=== PATIENT | female | born 1950 | race Two or more races ===

== ENCOUNTER 2017-07-05 10:37 | Emergency (ER) | payer BC, OTHER ==
[~2017-07-05] VITALS: Ht 157.5 cm; Wt 74.8 kg
[~2017-07-05 10:37] MED LIST: ASCO500T9 PO; CARV12.52 PO; CHOL100040 PO; FENO145T PO; FERR325T24 PO; INSU100V28 SQ; LISI-603 PO
[2017-07-05] MEDS ORDERED: FLUORESCEIN SODIUM OPHTH 1 EA STRIP ONE (11:28)
[2017-07-05] MEDS ORDERED: TETRACAINE HCL/PF 0.5% UD 2 ML BOTTLE ONE (11:29)
[2017-07-05] MEDS ORDERED: FLUORESCEIN SODIUM OPHTH 1 EA STRIP OP ONE (11:30)
[2017-07-05] MEDS ORDERED: TETRACAINE HCL/PF 0.5% UD 2 ML BOTTLE OP ONE (11:30)
--- NOTE | 2017-07-05 12:34 | NUR ---
CALLED THE OPTHAMOLOGIST MEDICAL DEVICE ENGINEER FROM THIS PT'S CLINIC AND THE MD IS NOW ON THE PHONE WITH HIM.
[2017-07-05] MEDS ORDERED: TIMOLOL 0.5% SOLN OPHTH 5 ML BOTTLE OP ONE (13:00)
[2017-07-05] MEDS ORDERED: HYDROCODONE/APAP 5/325MG 1 EACH TABLET PO ONE (13:00)
[2017-07-05] MEDS ORDERED: LATANOPROST EYE DROP 0.005% 2.5 ML BOTTLE LEFTEYE SCH (13:00)
[2017-07-05] MEDS ORDERED: BRIMONIDINE TARTRATE OPHT SOLN 5 ML BOTTLE OP ONE (13:00)
[2017-07-05] MEDS ORDERED: acetaZOLAMIDE 250 MG TABLET PO ONE (13:00)
[2017-07-05] MEDS ORDERED: BRIMONIDINE TARTRATE OPHT SOLN 5 ML BOTTLE ONE (13:14)
[2017-07-05] MEDS ORDERED: HYDROCODONE/APAP 5/325MG 1 EACH TABLET ONE (13:14)
[2017-07-05] MEDS ORDERED: TIMOLOL 0.5% SOLN OPHTH 5 ML BOTTLE ONE (13:14)
[2017-07-05 14:39] VITALS: BP 125/74
== END 2017-07-05 14:46 | disposition home or self-care (01) ==
LOC: ER 10:38
DX: H40.212 Acute angle-closure glaucoma, left eye (principal); R51 Headache; E11.9 Type 2 diabetes mellitus without complications; E78.5 Hyperlipidemia, unspecified; I10 Essential (primary) hypertension; H54.62 Unqualified visual loss, left eye, normal vision right eye; Z60.2 Problems related to living alone
CPT/HCPCS: 82962-TC; A4606; Z7610

== ENCOUNTER 2019-05-18 15:42 | Emergency (ER) | payer BC, OTHER ==
[~2019-05-18] VITALS: Ht 157.5 cm; Wt 77.1 kg
[2019-05-18 15:49] VITALS: BP 194/78
--- NOTE | 2019-05-18 16:58 | NUR ---
CALLED PRIVATE TAXI
== END 2019-05-18 17:14 | disposition home or self-care (01) ==
LOC: ER 15:42
DX: R05 Cough (principal); E11.22 Type 2 diabetes mellitus with diabetic chronic kidney disease; I13.11 Hypertensive heart and chronic kidney disease without heart failure, with stage 5 chronic kidney disease, or end stage renal disease; N18.6 End stage renal disease; E78.5 Hyperlipidemia, unspecified; Z99.2 Dependence on renal dialysis; Z60.2 Problems related to living alone; Z79.899 Other long term (current) drug therapy; Z79.4 Long term (current) use of insulin
CPT/HCPCS: 71045-TC

== ENCOUNTER 2019-11-18 16:11 | Emergency (ER) | payer OTHER ==
[~2019-11-18] VITALS: Ht 160 cm; Wt 77.1 kg
[~2019-11-18 16:11] MED LIST changes: +ASCO-352 PO; -ASCO500T9 PO
[2019-11-18 16:41] LABS: BASOPHILS % (AUTO) 0.3 % (0.0-2.0); EOSINOPHILS % (AUTO) 0.1 % (0.0-6.0); HEMATOCRIT 39 % (33-45); HEMOGLOBIN 12.7 g/dL (11.5-14.8); LYMPHOCYTES # (AUTO) 0.5 /CMM (0.8-4.8); LYMPHOCYTES % (AUTO) 4.3 % (20.0-44.0); MEAN CORPUSCULAR HGB CONC 32 g/dl (31.0-36.0); MEAN CORPUSCULAR VOLUME 93 fL (82-100); MONOCYTES # (AUTO) 0.7 /CMM (0.1-1.30); MONOCYTES % (AUTO) 6.6 % (2.0-12.0); NEUTROPHILS # (AUTO) 9.3 /CMM (1.8-8.9); NEUTROPHILS % (AUTO) 88.7 % (43.0-81.0); PLATELET COUNT (AUTO) 170 /CMM (150-450); RED BLOOD CELL COUNT(AUTO) 4.21 MIL/uL (4.0-5.2); WHITE BLOOD COUNT (AUTO) 10.5 K/uL (4.3-11.0)
--- NOTE | 2019-11-18 16:41 | NUR ---
KATE FROM HOME TO ER BED 6. AAXO4. NOT IN RESP DISTRESS. BROUGHT IN FOR GLF. PT IS COMPLAINING OF L KNEE PAIN S/P FALL. PT IS POSITIVE L LOWER EXT SHORTENING AND EXTERNAL ROTATION. PT RECEIVED FENTANYL 100MCG CHAIRMAN & CEO BY THE EMS. PT IS NOT COMPLANING OF ANY PAIN UNLES SHE IS MOVED OR TRIES TO MOVE ER L LEG. PT DENIES LOC AND REMEMBER FALLING. SHE REPORTS THAT SHE WAS ON THE FLOOR FOR 3 HOURS UNTIL SHE CRAWL TO HER WALKER. PT REPORTS BEING ON DIALYSIS AND MISSED HER SESSION TODAY. WAS AT THE BEDSIDE FOR EVAL. ORDERS RECEIVED NOTED AND CARRIED OUT. IV LINE ESTABLISHED ON RFA 20G. BLOOD DRAWN AND GIVEN TO FRANCHISE BROKER AT BEDSIDE.
[2019-11-18 16:54] LABS: ALANINE AMINOTRANSFERASE 18 U/L (12-78); ALBUMIN 3.4 g/dL (3.4-5.0); ALKALINE PHOSPHATASE 113 U/L (46-116); ASPARTATE AMINOTRANSFERASE 20 U/L (15-37); BILIRUBIN,DIRECT 0.1 mg/dL (0.0-0.2); BILIRUBIN,TOTAL 0.7 mg/dL (0.2-1.0); CALCIUM, SERUM 8.8 mg/dL (8.5-10.1); CARBON DIOXIDE 24 mmol/L (21-32); CHLORIDE 101 mmol/L (98-107); GLUCOSE 162 mg/dL (74-106); POTASSIUM 3.8 mmol/L (3.5-5.1); SODIUM SERUM 138 mmol/L (136-145); TOTAL PROTEIN, SERUM 7.5 g/dL (6.4-8.2)
[2019-11-18 17:10] LABS: UREA NITROGEN, BLOOD 51 mg/dL (7-18)
[2019-11-18 17:12] LABS: CREATININE 7.6 mg/dL (0.6-1.3)
[2019-11-18] MEDS ORDERED: INSU100I14 SQ (17:19)
[2019-11-18] MEDS ORDERED: NPH,100I SQ (17:19)
[2019-11-18] MEDS ORDERED: OMEP40CA13 PO (17:19)
[2019-11-18] MEDS ORDERED: ATOR40TA PO (17:19)
--- NOTE | 2019-11-18 17:21 | NUR ---
GAVE MOVESHEET TO ADMITTING FOR INSURANCE AUTH
[2019-11-18] MEDS ORDERED: ONDANSETRON HCL/PF 4 MG/2 ML VIAL ONE (17:22)
[2019-11-18] MEDS ORDERED: MORPHINE SULFATE INJ 4 MG/ML DISP.SYRIN ONE ×3 (17:22→23:39)
[2019-11-18] MEDS ORDERED: MORPHINE SULFATE INJ 4 MG/ML DISP.SYRIN IV ONE ×2 (17:30→22:00)
[2019-11-18] MEDS ORDERED: ONDANSETRON HCL/PF 4 MG/2 ML VIAL IV ONE (17:30)
--- NOTE | 2019-11-18 17:41 | NUR ---
COVID SWAB DONE AND SENT TO LAB
--- NOTE | 2019-11-18 19:20 | NUR ---
CLINICALS AND MOVE PACKET TURNED IN.
--- NOTE | 2019-11-18 21:14 | NUR ---
PT COMPLAINED OF PAIN STARTING TO COME BACK. MADE AWARE. VERBAL ORDER REICEVED TO GIVE MORPHINE 4MG IV X 1 DOSE. PT ALSO REQUESTED TO EAT, MD OK TO HAVE FOOD FOR PT BEFORE MIDNIGHT.
--- NOTE | 2019-11-18 22:53 | NUR ---
TRANSFER INFO: RECEIVED CALL FROM [facility] LEBLANC PT ACCEPTED BY DR ALVAREZ, RN FOR REPORT [phone], AWAITING CALL BACK WITH ETA
--- NOTE | 2019-11-18 23:10 | NUR ---
PT ACCEPTED TO [facility]
[2019-11-18] MEDS ORDERED: MORPHINE SULFATE INJ 2 MG/ML DISP.SYRIN IV ONE (23:30)
--- NOTE | 2019-11-18 23:59 | NUR ---
REPORT GIVEN TO CORINNE TELLEZ OF [facility] ER FOR MORRIS. AWAITING FOR TRANSPORT ETA.
--- NOTE | 2019-11-18 23:59 | NUR ---
Boby lynch in EDM - 11/19/19 at 0000 by JSARMIENTO REPORT GIVEN TO CORINNE CACERES OF [facility] FOR MORRIS. AWAITING FOR TRANSPORT ETA.
--- NOTE | 2019-11-19 00:04 | NUR ---
[facility] ETA 0300 HOURS
[2019-11-19 01:01] VITALS: BP 98/44
--- NOTE | 2019-11-19 01:01 | NUR ---
PT IN BED SLEEPING COMFORTABLY. NAD NOTED
--- NOTE | 2019-11-19 03:22 | NUR ---
[facility] AT BEDSIDE FOR TRANSPORT TO [facility].
== END 2019-11-19 03:32 | disposition short-term general hospital (02) ==
LOC: ER 16:12
DX: S72.142A Displaced intertrochanteric fracture of left femur, initial encounter for closed fracture (principal); S72.8X2A Other fracture of left femur, initial encounter for closed fracture; W18.30XA Fall on same level, unspecified, initial encounter; Y92.019 Unspecified place in single-family (private) house as the place of occurrence of the external cause; E11.22 Type 2 diabetes mellitus with diabetic chronic kidney disease; I12.0 Hypertensive chronic kidney disease with stage 5 chronic kidney disease or end stage renal disease; N18.6 End stage renal disease; N17.9 Acute kidney failure, unspecified; Z99.2 Dependence on renal dialysis; Z79.4 Long term (current) use of insulin; Z79.899 Other long term (current) drug therapy; E78.5 Hyperlipidemia, unspecified; E11.51 Type 2 diabetes mellitus with diabetic peripheral angiopathy without gangrene; Z20.828 Contact with and (suspected) exposure to other viral communicable diseases
CPT/HCPCS: 36415; 51702; 73503; 73564; 73610; 80048; 80076; 82962; 84484; 85025; 87426; 93005; 96374; 96375; 96376; 99285; C9803; J2270 ×3; J2405; 73502

== ENCOUNTER 2020-01-02 17:04 | Inpatient (IN) | payer OTHER ==
[~2020-01-02] VITALS: Ht 162.6 cm; Wt 79.8 kg
[~2020-01-02 17:04] MED LIST changes: +ATOR40TA PO; -FENO145T PO; -FERR325T24 PO; +INSU100I14 SQ; -INSU100V28 SQ; +NPH,100I SQ; +OMEP40CA13 PO
--- NOTE | 2020-01-02 17:08 | NUR ---
[id number] frm LONG-TERM for "vaginal bleeding" noted at dialysis center. skin and body assessment and pericare provided. no vaginal bleeding noted. no SOB. no tachycardia. awaiting for MD sanders
--- NOTE | 2020-01-02 17:15 | NUR ---
at bedside for eval.
--- NOTE | 2020-01-02 17:28 | NUR ---
foundry hand at pt bedside for blood draw
[2020-01-02 17:35] LABS: BASOPHILS # (AUTO) 0.1 /CMM (0.0-0.2); BASOPHILS % (AUTO) 0.5 % (0.0-2.0); EOSINOPHILS % (AUTO) 0.1 % (0.0-6.0); HEMATOCRIT 30 % (33-45); HEMOGLOBIN 9.3 g/dL (11.5-14.8); LYMPHOCYTES # (AUTO) 0.4 /CMM (0.8-4.8); LYMPHOCYTES % (AUTO) 1.9 % (20.0-44.0); MEAN CORPUSCULAR HGB CONC 31 g/dl (31.0-36.0); MEAN CORPUSCULAR VOLUME 92 fL (82-100); MONOCYTES # (AUTO) 0.7 /CMM (0.1-1.30); MONOCYTES % (AUTO) 3.3 % (2.0-12.0); NEUTROPHILS # (AUTO) 20.7 /CMM (1.8-8.9); NEUTROPHILS % (AUTO) 94.2 % (43.0-81.0); PLATELET COUNT (AUTO) 240 /CMM (150-450); RED BLOOD CELL COUNT(AUTO) 3.22 MIL/uL (4.0-5.2)
[2020-01-02 17:39] LABS: CALCIUM, SERUM 8.4 mg/dL (8.5-10.1); CARBON DIOXIDE 29 mmol/L (21-32); CHLORIDE 100 mmol/L (98-107); CREATININE 2.4 mg/dL (0.6-1.3); GLUCOSE 84 mg/dL (74-106); POTASSIUM 3.3 mmol/L (3.5-5.1); SODIUM SERUM 138 mmol/L (136-145); UREA NITROGEN, BLOOD 17 mg/dL (7-18)
[2020-01-02 18:10] LABS: BILIRUBIN,DIRECT 0.4 mg/dL (0.0-0.2); BILIRUBIN,TOTAL 0.7 mg/dL (0.2-1.0); TOTAL PROTEIN, SERUM 6.2 g/dL (6.4-8.2)
[2020-01-02 18:20] LABS: ALBUMIN 1.4 g/dL (3.4-5.0)
[2020-01-02] MEDS ORDERED: CALC668T PO (18:21)
[2020-01-02] MEDS ORDERED: DICY20TA11 PO (18:21)
[2020-01-02] MEDS ORDERED: PREG25CA19 PO (18:21)
[2020-01-02] MEDS ORDERED: VITA1TAB56 PO (18:21)
[2020-01-02] MEDS ORDERED: ALEN70TA69 PO (18:22)
--- NOTE | 2020-01-02 18:40 | NUR ---
URINE COLLECTED AND SETN TO LAB
--- NOTE | 2020-01-02 18:53 | NUR ---
KEPT PT CLEAN AND COMFORTABLE. BEDSIDE CARE PROVIDED
[2020-01-02 19:08] LABS: BILIRUBIN,URINE SMALL (NEGATIVE); BLOOD, URINE Moderate Ery/uL (NEGATIVE); COLOR,URINE Brown (YELLOW); LEUKOCYTE ESTERASE ,URINE Large (NEGATIVE); NITRITE, URINE Negative (NEGATIVE); PH,URINE 7.5 (5.0-8.0); PROTEIN,URINE >=300 mg/dl (NEGATIVE); UGLUCOSE Negative (NEGATIVE); UROBILINOGEN,URINE 0.2 EU/dL (0.2)
--- NOTE | 2020-01-02 19:14 | NUR ---
SPOKE TO CHALO REGAL PRODUCTION DIRECTOR GAVE PT MORRIS
[2020-01-02 19:24] LABS: BACTERIA,URINE 3+ /HPF (None Seen); RBC,URINE TOO NUMEROUS TO COUN /HPF (0-2); SQUAMOUS EPITHELIAL CELL,UR Few /HPF (None Seen); WBC,URINE TOO NUMEROUS TO COUN /HPF (0-3)
[2020-01-02] MEDS ORDERED: IV NS 0.9% 1,000 ML BAG IV ONE (19:30)
[2020-01-02] MEDS ORDERED: PIPERACILLIN /TAZOBACTAM 3.375 G in IV D5W 50 ML IV ONE (20:00)
[2020-01-02] MEDS ORDERED: VANCOMYCIN 1 GM in IV D5W 250 ML IV ONE (20:00)
[2020-01-02] MEDS ORDERED: LORAZEPAM INJ 2 MG/ML VIAL ONE (20:15)
--- NOTE | 2020-01-02 20:40 | NUR ---
DR. PINEDA SPEAKING WITH DR. BLACK
[2020-01-02] MEDS ORDERED: VANCOMYCIN 1 GM VIAL ONE (20:41)
[2020-01-02] MEDS ORDERED: PIPERACILLIN /TAZOBACTAM 3.375 G VIAL IV ONE (20:41)
[2020-01-02] MEDS ORDERED: POTASSIUM CHLORIDE 20 MEQ TAB.PRT.SR PO ONE ×2 (21:00→23:57)
[2020-01-02] MEDS ORDERED: ZOLPIDEM TARTRATE 5 MG TABLET PO PRN (21:00)
[2020-01-02] MEDS ORDERED: HYDROCODONE/APAP 5/325MG TABLET PO PRN (21:00)
[2020-01-02] MEDS ORDERED: LORAZEPAM INJ 2 MG/ML VIAL IV PRN (21:00)
[2020-01-02] MEDS ORDERED: DEXTROSE 50%-WATER 50 ML DISP.SYRIN IV PRN (21:00)
--- NOTE | 2020-01-02 21:28 | NUR ---
REPORT GIVEN TO CHALINO SUN FOR MORRIS.
[2020-01-02] MEDS ORDERED: IV NS 0.9% 250 ML IV PRN (21:30)
[2020-01-02 22:00] VITALS: BP 77/42
[2020-01-02 22:57] VITALS: BP 125/62
[2020-01-02] MEDS: BLOOD SUGAR DIAGNOSTIC 1 EACH STRIP VI SCH (23:41)
[2020-01-02] MEDS ORDERED: PIPERACILLIN /TAZOBACTAM 2.25 G VIAL IV ONE (23:57)
[2020-01-03] VITALS (77 sets, daily range): BP systolic 68–128; BP diastolic 20–104
--- NOTE | 2020-01-03 | NUR ---
agricultural sciences professor. pt being admitted in the icu for uti,hematuria, pt awake, confused. oxygen 3l via nasal cannula. sat 98%, no acute distress noted. lunchroom monitor showing nsr, iv rt hand lt hand av fistula, afebrile. hob elevated. multiple wound noted. picture taken and placed in the chart.will continue to monitor vitals
[2020-01-03] MEDS ORDERED: NOREPINEPHRINE 4 MG/4 ML AMPUL IV ONE (00:10)
[2020-01-03] MEDS: PREGABALIN 25 MG CAPSULE PO SCH ×2 (00:19→21:32)
[2020-01-03] MEDS: NOREPINEPHRINE 32 MG in IV NS 0.9% 218 ML IV PRN ×2 (00:29→21:06)
[2020-01-03] MEDS: ZOSYN IVPB 2.25 G in IV D5W 50ml IV SCH ×2 (01:12→06:11)
--- NOTE | 2020-01-03 02:10 | NUR ---
HEALTH INSURANCE ADJUSTER. PT SLEPT WELL. NO CHANGES. WILL CONTINUE TO MONITOR.
--- NOTE | 2020-01-03 03:14 | NUR ---
agriculture extension specialist. bp 66.45. levophed started per protocol.
[2020-01-03 04:43] LABS: BASOPHILS # (AUTO) 0.1 /CMM (0.0-0.2); BASOPHILS % (AUTO) 0.2 % (0.0-2.0); HEMATOCRIT 35 % (33-45); HEMOGLOBIN 10.5 g/dL (11.5-14.8); LYMPHOCYTES % (AUTO) 2.9 % (20.0-44.0); MEAN CORPUSCULAR HGB CONC 30 g/dl (31.0-36.0); MEAN CORPUSCULAR VOLUME 97 fL (82-100); MONOCYTES # (AUTO) 1.6 /CMM (0.1-1.30); MONOCYTES % (AUTO) 4.9 % (2.0-12.0); NEUTROPHILS # (AUTO) 30.9 /CMM (1.8-8.9); PLATELET COUNT (AUTO) 266 /CMM (150-450); RED BLOOD CELL COUNT(AUTO) 3.61 MIL/uL (4.0-5.2)
[2020-01-03 04:50] LABS: WHITE BLOOD COUNT (AUTO) 33.6 K/uL (4.3-11.0)
[2020-01-03 04:55] LABS: CALCIUM, SERUM 8.2 mg/dL (8.5-10.1); CARBON DIOXIDE 22 mmol/L (21-32); CHLORIDE 100 mmol/L (98-107); CREATININE 2.8 mg/dL (0.6-1.3); GLUCOSE 112 mg/dL (74-106); POTASSIUM 3.4 mmol/L (3.5-5.1); SODIUM SERUM 138 mmol/L (136-145); UREA NITROGEN, BLOOD 22 mg/dL (7-18)
--- NOTE | 2020-01-03 05:00 | NUR ---
agricultural sales representative. pt has fever 100.5, tylenol pulled out from [facility]. pt refused. notified md rocha. new order received tylenol suppository.
[2020-01-03 05:01] LABS: ALANINE AMINOTRANSFERASE 30 U/L (12-78); ALBUMIN 1.5 g/dL (3.4-5.0); ALKALINE PHOSPHATASE 107 U/L (46-116); ASPARTATE AMINOTRANSFERASE 94 U/L (15-37); BILIRUBIN,TOTAL 0.9 mg/dL (0.2-1.0); MAGNESIUM 2.1 mg/dL (1.8-2.4); TOTAL PROTEIN, SERUM 6.6 g/dL (6.4-8.2)
[2020-01-03 05:15] LABS: LYMPHOCYTES % (MANUAL) 4 % (16-48); MONOCYTES % (MANUAL) 5 % (0-11.0); NEUTROPHILS % (MANUAL) 91 (42-76)
[2020-01-03] MEDS: ACETAMINOPHEN 325 MG TABLET PO PRN (05:24)
[2020-01-03] MEDS ORDERED: PIPERACILLIN /TAZOBACTAM 2.25 G VIAL IV ONE (05:50)
[2020-01-03] MEDS ORDERED: ACETAMINOPHEN 650 MG/SUPP.RECT RC PRN (06:30)
--- NOTE | 2020-01-03 06:56 | NUR ---
agriculture instructor. wbc 33.6. notified md rocha. and short run v tach, .pt waiting for picc line. .will continue to monitor.
[2020-01-03] MEDS: PANTOPRAZOLE 40 MG TABLET.DR PO SCH (07:30)
--- NOTE | 2020-01-03 07:30 | NUR ---
RECEIVED PATIENT IN BED. NO ACUTE DISTRESS NOTED. PATIENT ALERT & ORIENTED X2, WITH CONFUSION. PATIENT RECEIVING OXYGEN VIA NASAL CANULA, SATURATING WELL AT 94%. PATIENT ON BIOLOGY SPECIMEN TECHNICIAN, SINUS TACHYCARDIA NOTED. PATIENT SWALLOW EVAL ORDERED DUE TO POSSIBLE ASPIRATION RISK, SO NON-ADMINISTERING PO MEDS FOR THE TIME BEING. PATIENT RIGHT ARM IV ACCESS INTACT, PATENT FLUSHED WELL, RIGHT WRIST IV ACCESS INTACT, PATENT, FLUSHED WELL. PATIENT ON VASOPRESSORS, SO PICC LINE ORDERED AND CONSENT SIGNED BY TIME BROKER NURSE, AWAITING PICC LINE PLACEMENT. PATIENT WBC AT CRITICAL VALUE, PER TIME BROKER NURSE MD BLACK NOTIFIED. BILATERAL SOFT WRIST RESTRAINTS IN PLACE, SAFETY MEASURES MAINTAINED. PATIENT SAFETY MEASURES MAINTAINED. WILL CONTINUE TO MONITOR.
[2020-01-03] MEDS: CALCIUM ACETATE 667 MG TABLET PO SCH ×2 (08:00→17:50)
[2020-01-03] MEDS ORDERED: POTASSIUM CHLORIDE 10 MEQ/50 ML PREMIXED IVPB FOR PERIPHERAL LINE IV ONE (08:00)
[2020-01-03] MEDS: BLOOD SUGAR DIAGNOSTIC 1 EACH STRIP VI SCH ×4 (08:15→21:36)
[2020-01-03] MEDS: DICYCLOMINE HCL 10 MG CAPSULE PO SCH ×2 (08:16→17:50)
[2020-01-03] MEDS: ATORVASTATIN 40 MG TABLET PO SCH (08:18)
[2020-01-03] MEDS: CHOLECALCIFEROL 1,000 UNIT TABLET (VIT D3) PO SCH (08:18)
[2020-01-03] MEDS: VITAMIN B COMP W-C 1 TAB TABLET PO SCH (08:18)
[2020-01-03] MEDS: ASCORBIC ACID 500 MG TABLET PO SCH ×2 (08:18→17:50)
[2020-01-03] MEDS ORDERED: Z GUARD REMEDY 2 OZ OINT TP PRN (08:30)
[2020-01-03] MEDS ORDERED: MEROPENEM 500 MG in IV NS 0.9% 50 ML IV SCH (08:30)
[2020-01-03] MEDS ORDERED: VANCOMYCIN 500 MG in IV D5W 100 ML IV PRN (08:30)
[2020-01-03] MEDS ORDERED: IV NS 0.9% 1,000 ML IV PRN (08:30)
--- NOTE | 2020-01-03 08:30 | NUR ---
WOUND CARE CONSULT: REVIEWED CHART, NURSING DOCUMENTATION AND PHOTOS WHICH INDICATE MULTIPLE DEEP TISSUE INJURIES, PRESENT ON ADMISSION. RECOMMEND SURGICAL AND DPM CONSULTATIONS. DR SIMENTAL AND DR MAYFIELD NOTIFIED OF CONSULT REQUESTS. RECOMMENDATIONS MADE FOR SKIN PROTECTION. DISCUSSED WITH NURSING STAFF. FIRST STEP LOW AIRLOSS MATTRESS IS ON ORDER. MD IN AGREEMENT WITH PLAN OF CARE.
[2020-01-03] MEDS: Z GUARD REMEDY 2 OZ OINT TP SCH (08:45)
[2020-01-03] MEDS: POTASSIUM CL. PREMIX PERIPHER. 50 ML IV SCH ×4 (08:46→11:59)
[2020-01-03] MEDS: MEROPENEM 500 MG in IV NS 0.9% 50 ML IV SCH (08:46)
[2020-01-03] MEDS: INSULIN REGULAR, HUMAN 100 UNIT/ML 3 ML VIAL SQ PRN ×2 (11:57→18:05)
[2020-01-03] MEDS ORDERED: PIPERACILLIN /TAZOBACTAM 2.25 G in IV D5W 50 ML IV SCH ×3 (13:00)
[2020-01-03] MEDS: PHENYLEPHRINE 100 MG in IV NS 0.9% 240 ML IV PRN ×2 (14:17→21:06)
--- NOTE | 2020-01-03 19:32 | NUR ---
LOG YARD MANAGER OPENING NOTES: Rec'd pt in bed, awake A&Ox1-2, confused. On 3LPM NC tolerating well. No SOB or resp distress noted. Breathing even and unlabored. Sinus tachy on tele monitor. Right IJ PICC patent and infusing Eugenio at 3mcg/kg/min. Levo at 0.9mcg/kg/min. Will titrate per protocol. NS at 50ml/hr. Right arm #18 patent and flushed. Left arm AV fistula n oted. Bilateral soft wrist restraints in place. Safety measures in place. Will continue to monitor.
[2020-01-03] MEDS: *INSULIN REGULAR(HUMULIN R)HUM 100 UNIT/ML VIAL SQ PRN (21:38)
[2020-01-04] VITALS (98 sets, daily range): BP systolic 68–159; BP diastolic 28–124
[2020-01-04] MEDS: ACETAMINOPHEN 325 MG TABLET PO PRN (04:23)
--- NOTE | 2020-01-04 04:23 | NUR ---
EMULSION COATER NOTE: Pt noted w/ temp of 100.2. Tylenol 650mg PO PRN given as ordered. Cooling measures in place. Will continue to monitor. Addendum: 01/04/20 at 0558 by MELINDA CONNOR RN Rechecked pt's temp. Currently 98.6. Will continue to monitor.
[2020-01-04 04:35] LABS: BASOPHILS % (AUTO) 0.1 % (0.0-2.0); HEMATOCRIT 31 % (33-45); HEMOGLOBIN 9.1 g/dL (11.5-14.8); LYMPHOCYTES # (AUTO) 0.9 /CMM (0.8-4.8); LYMPHOCYTES % (AUTO) 2.7 % (20.0-44.0); MEAN CORPUSCULAR HGB CONC 30 g/dl (31.0-36.0); MEAN CORPUSCULAR VOLUME 95 fL (82-100); MONOCYTES # (AUTO) 1.6 /CMM (0.1-1.30); MONOCYTES % (AUTO) 4.8 % (2.0-12.0); NEUTROPHILS # (AUTO) 30.7 /CMM (1.8-8.9); NEUTROPHILS % (AUTO) 92.4 % (43.0-81.0); PLATELET COUNT (AUTO) 299 /CMM (150-450); RED BLOOD CELL COUNT(AUTO) 3.19 MIL/uL (4.0-5.2)
[2020-01-04 04:38] LABS: WHITE BLOOD COUNT (AUTO) 33.2 K/uL (4.3-11.0)
[2020-01-04] MEDS: NOREPINEPHRINE 32 MG in IV NS 0.9% 218 ML IV PRN ×3 (04:41→20:48)
[2020-01-04] MEDS ORDERED: PHENYLEPHRINE 10 MG/ML VIAL ONE (04:46)
[2020-01-04 04:47] LABS: ALANINE AMINOTRANSFERASE 32 U/L (12-78); ALKALINE PHOSPHATASE 93 U/L (46-116); ASPARTATE AMINOTRANSFERASE 61 U/L (15-37); BILIRUBIN,TOTAL 0.9 mg/dL (0.2-1.0); CALCIUM, SERUM 8.3 mg/dL (8.5-10.1); CARBON DIOXIDE 15 mmol/L (21-32); CHLORIDE 102 mmol/L (98-107); CREATININE 3.7 mg/dL (0.6-1.3); GLUCOSE 214 mg/dL (74-106); MAGNESIUM 2.1 mg/dL (1.8-2.4); POTASSIUM 4.1 mmol/L (3.5-5.1); SODIUM SERUM 142 mmol/L (136-145); TOTAL PROTEIN, SERUM 6.1 g/dL (6.4-8.2); UREA NITROGEN, BLOOD 32 mg/dL (7-18)
[2020-01-04 04:49] LABS: ALBUMIN 1.3 g/dL (3.4-5.0)
[2020-01-04] MEDS: PHENYLEPHRINE 100 MG in IV NS 0.9% 240 ML IV PRN ×3 (04:54→21:36)
[2020-01-04 05:04] LABS: CREATINE KINASE, TOTAL 167 U/L (26-192)
[2020-01-04 05:07] LABS: LYMPHOCYTES % (MANUAL) 3 % (16-48); MONOCYTES % (MANUAL) 5 % (0-11.0); NEUTROPHILS % (MANUAL) 92 (42-76)
--- NOTE | 2020-01-04 06:15 | NUR ---
PAVER NOTE: Rec'd critical lab values wbc:33.2 and albumin 1.3. Paged Dr. Kay who had NNO at this time.
--- NOTE | 2020-01-04 07:05 | NUR ---
ADMISSION NURSE CLOSING NOTES: No acute changes noted throughout shift. Remains on 3LPM NC tolerating well. No SOB or resp distress noted throughout shift. ST on tele monitor. RIJ PICC line patent and infusing NS at 50ml/hr, Levo at 0.9mcg/kg/min and Eugenio at 3mcg/kg/min. Kept clean/dry. All due meds given as ordered. Safety measures in place. Will endorse to oncoming nurse for MORRIS.
[2020-01-04] MEDS: ATORVASTATIN 40 MG TABLET PO SCH (08:18)
[2020-01-04] MEDS: CALCIUM ACETATE 667 MG TABLET PO SCH ×2 (08:19→17:18)
[2020-01-04] MEDS: MEROPENEM 500 MG in IV NS 0.9% 50 ML IV SCH (08:19)
[2020-01-04] MEDS: PANTOPRAZOLE 40 MG TABLET.DR PO SCH (08:19)
[2020-01-04] MEDS: ASCORBIC ACID 500 MG TABLET PO SCH ×2 (08:19→16:25)
[2020-01-04] MEDS: DICYCLOMINE HCL 10 MG CAPSULE PO SCH ×2 (08:19→16:25)
[2020-01-04] MEDS: CHOLECALCIFEROL 1,000 UNIT TABLET (VIT D3) PO SCH (08:19)
[2020-01-04] MEDS: VITAMIN B COMP W-C 1 TAB TABLET PO SCH (08:19)
[2020-01-04] MEDS: BLOOD SUGAR DIAGNOSTIC 1 EACH STRIP VI SCH ×4 (08:19→21:40)
[2020-01-04] MEDS: Z GUARD REMEDY 2 OZ OINT TP SCH (08:19)
[2020-01-04] MEDS: INSULIN REGULAR, HUMAN 100 UNIT/ML 3 ML VIAL SQ PRN ×2 (08:20→12:38)
[2020-01-04] MEDS: INSULIN GLARGINE, 100 UNIT/ML CARTRIDGE SQ SCH (10:09)
[2020-01-04] MEDS: VASOPRESSIN INJ 40 UNIT in IV NS 0.9% 38 ML IV PRN (11:01)
--- NOTE | 2020-01-04 11:13 | NUR ---
RN NOTE 0715: Received patient awake, alert to name. RIJ TLC intact, on Eugenio max and Levo 0.9. ST 140's on the monitor. IVF infusing as ordered. VICTORINO AV fistula intact, + bruit/thrill. 0800: Patient refused to have breakfast. 0820: DCd IVF per MD. 0930: Noted patient is more lethargic, able to answer yes/no questions but really weak. 1030: Starting Vaso for still noted with SBP low 80's. 1100: Noted patient lethargic and SOB, informed MD, obtained order for ABG and CXR.
[2020-01-04 11:48] LABS: ABG BASE EXCESS -13.6 mmol/L; ABG OXYGEN SATURATION 86.4 % (92.0-98.5); ABG PCO2 27.4 mmHg (35.0-45.0); ABG PH 7.261 (7.350-7.450); ABG PO2 61.8 mmHg (75.0-100.0); AaDO2 134.3 mmHg; COHb 0.5 % (0.5-1.5); MetHb 0.3 % (0.0-1.5); O2Hb 85.7 % (94.0-97.0); SITE, ABG Right Radial; VENT MODE, BG N/C 3LPM
[2020-01-04] MEDS ORDERED: LIDOCAINE 1%-EPI 1:200,000 SDV 10 ML VIAL IJ STA (13:07)
--- NOTE | 2020-01-04 14:30 | NUR ---
RN NOTE 1300: Dr. Pina S/E patient, checked on both feet but no debridement per MD, she consulted vascular. 1430: Made Pulmo aware for ABG, repeat ABG after HD. HD nurse at bedside to start HD. On 3 pressors max.
--- NOTE | 2020-01-04 17:18 | NUR ---
RN NOTE HD nurse reported 700mL out. Held pm meds for patient still noted with lethargy at times also refused dinner. Noted with coughing when drinking, kept HOB elevated.
--- NOTE | 2020-01-04 19:10 | NUR ---
PROPERTY STAFF ACCOUNTANT OPENING NOTES: Rec'd pt in bed, A&Ox1-2. On 3LPN NC tolerating well. No SOB or resp distress noted throughout shift. ST on tele monitor. Right IJ TLC patent and infusing Levo at 1.0mcg/kg/min, Eugenio at 3mcg/kg/min. Will titrate per protocol. Right arm #18 patent and flushed. Noted w/ LFA AV fistula. Safety measures in place. Will continue to monitor.
--- NOTE | 2020-01-04 19:40 | NUR ---
LEGAL ADVISER NOTE: RT at bedside to do abg and ekg. RT increased pt's O2 to 5LPM. Will continue to monitor.
[2020-01-04 19:41] LABS: ABG BASE EXCESS -10.3 mmol/L; ABG OXYGEN SATURATION 88.1 % (92.0-98.5); ABG PCO2 20.3 mmHg (35.0-45.0); ABG PH 7.411 (7.350-7.450); ABG PO2 55.6 mmHg (75.0-100.0); AaDO2 148.8 mmHg; COHb 0.5 % (0.5-1.5); MetHb 0.3 % (0.0-1.5); O2Hb 87.4 % (94.0-97.0); SITE, ABG Right Radial; VENT MODE, BG N/C 32%
--- NOTE | 2020-01-04 20:00 | NUR ---
PURIFYING PLANT OPERATOR NOTE: Pt's BP unstable, SBP between 89-90s, w/ HR in 150s. Per charge auditor restart Vasopressin and titrate Levo by 0.05mcg/kg/min. Will continue to monitor.
[2020-01-04] MEDS: PREGABALIN 25 MG CAPSULE PO SCH (21:38)
[2020-01-04] MEDS: *INSULIN REGULAR(HUMULIN R)HUM 100 UNIT/ML VIAL SQ PRN (21:42)
--- NOTE | 2020-01-04 22:59 | NUR ---
CLUB ROOM ATTENDANT NOTE: Pt noted to be tachypneic w/ rr in 30s and spo2 in 70-80s. Pt placed on nonrebreather at 10LPM. Paged Dr. Kay w/ update and abg results from earlier. Gave orders for high flow o2 40LPM keep o2 >92%. Order noted and carried out.
--- NOTE | 2020-01-04 23:30 | NUR ---
RT NOTE PT PLACED ON HIGH FLOW NASAL CANNULA @ 40 LPM ON 100% FIO2 PER MD BLACK. PT AWAKE/ALERT AND ABLE TO RESPOND. CORINNE LAWRENCE @ BEDSIDE. HIGH HEART RATE NOTED FROM 155-160 BPM. WILL CONTINUE TO MONITOR CLOSELY.
[2020-01-05] VITALS (99 sets, daily range): BP systolic 61–188; BP diastolic 39–176
--- NOTE | 2020-01-05 01:41 | NUR ---
SPO2 98% ON 100% FIO2. TITRATED FIO2 TO 80%. SPO2 @ 94%. PT EXTREMITIES REMAIN COLD. RN MELINDA AWARE. NO RESP. DISTRESS NOTED.
[2020-01-05] MEDS ORDERED: VASOPRESSIN INJ 20 UNIT/ML VIAL ONE (03:57)
[2020-01-05] MEDS: VASOPRESSIN INJ 40 UNIT in IV NS 0.9% 38 ML IV PRN ×2 (04:05→18:01)
[2020-01-05 04:33] LABS: BASOPHILS % (AUTO) 0.1 % (0.0-2.0); HEMATOCRIT 30 % (33-45); HEMOGLOBIN 8.8 g/dL (11.5-14.8); LYMPHOCYTES # (AUTO) 0.8 /CMM (0.8-4.8); LYMPHOCYTES % (AUTO) 2.2 % (20.0-44.0); MEAN CORPUSCULAR HGB CONC 30 g/dl (31.0-36.0); MEAN CORPUSCULAR VOLUME 95 fL (82-100); MONOCYTES # (AUTO) 1.2 /CMM (0.1-1.30); MONOCYTES % (AUTO) 3.1 % (2.0-12.0); NEUTROPHILS # (AUTO) 35.7 /CMM (1.8-8.9); NEUTROPHILS % (AUTO) 94.6 % (43.0-81.0); PLATELET COUNT (AUTO) 200 /CMM (150-450); RED BLOOD CELL COUNT(AUTO) 3.12 MIL/uL (4.0-5.2)
[2020-01-05 04:35] LABS: ALANINE AMINOTRANSFERASE 55 U/L (12-78); ALKALINE PHOSPHATASE 132 U/L (46-116); ASPARTATE AMINOTRANSFERASE 88 U/L (15-37); BILIRUBIN,TOTAL 0.9 mg/dL (0.2-1.0); CALCIUM, SERUM 8.2 mg/dL (8.5-10.1); CARBON DIOXIDE 15 mmol/L (21-32); CHLORIDE 106 mmol/L (98-107); CREATININE 3.7 mg/dL (0.6-1.3); GLUCOSE 192 mg/dL (74-106); PHOSPHORUS 2.9 mg/dL (2.5-4.9); SODIUM SERUM 143 mmol/L (136-145); TOTAL PROTEIN, SERUM 5.8 g/dL (6.4-8.2); UREA NITROGEN, BLOOD 36 mg/dL (7-18)
[2020-01-05] MEDS: NOREPINEPHRINE 32 MG in IV NS 0.9% 218 ML IV PRN ×3 (04:40→18:02)
[2020-01-05] MEDS: PHENYLEPHRINE 100 MG in IV NS 0.9% 240 ML IV PRN ×2 (04:40→20:50)
[2020-01-05 04:42] LABS: WHITE BLOOD COUNT (AUTO) 37.8 K/uL (4.3-11.0)
[2020-01-05 05:16] LABS: ALBUMIN 1.3 g/dL (3.4-5.0)
[2020-01-05 05:25] LABS: BAND % (MANUAL) 3 % (0.0-5.0); LYMPHOCYTES % (MANUAL) 4 % (16-48); NEUTROPHILS % (MANUAL) 90 (42-76)
[2020-01-05 05:26] LABS: MONOCYTES % (MANUAL) 3 % (0-11.0)
--- NOTE | 2020-01-05 06:18 | NUR ---
LAPEL BASTER NOTE: Rec'd critical lab values: WBC 37.8 and albumin 1.3. Paged Dr. Kay at 0600 w/ NNO at this time.
--- NOTE | 2020-01-05 07:11 | NUR ---
TURNER SPLITTER MACHINE OPERATOR CLOSING NOTES: Pt in stable condition. On high flow O2 40LPM w/ O2 80%. Tolerating well. ST on tele monitor. Right IJ PICC line patent and infusing Levo at 0.4mcg/kg/min, Eugenio at 3mcg/kg/min, and Vasopressin at 0.04mcg/kg/min. Kept clean/dry. All due meds given as ordered. Safety measures in place. Will endorse to oncoming nurse for MORRIS.
[2020-01-05] MEDS: PANTOPRAZOLE 40 MG TABLET.DR PO SCH (07:30)
[2020-01-05] MEDS: CALCIUM ACETATE 667 MG TABLET PO SCH ×2 (08:00→17:08)
[2020-01-05] MEDS: BLOOD SUGAR DIAGNOSTIC 1 EACH STRIP VI SCH ×5 (08:20→21:27)
[2020-01-05] MEDS: ASCORBIC ACID 500 MG TABLET PO SCH ×2 (08:20→17:00)
[2020-01-05] MEDS: VITAMIN B COMP W-C 1 TAB TABLET PO SCH (08:20)
[2020-01-05] MEDS: ATORVASTATIN 40 MG TABLET PO SCH (08:20)
[2020-01-05] MEDS: DICYCLOMINE HCL 10 MG CAPSULE PO SCH ×2 (08:20→17:00)
[2020-01-05] MEDS: CHOLECALCIFEROL 1,000 UNIT TABLET (VIT D3) PO SCH (08:20)
[2020-01-05] MEDS: Z GUARD REMEDY 2 OZ OINT TP SCH (08:21)
[2020-01-05 08:50] LABS: ABG OXYGEN SATURATION 90.7 % (92.0-98.5); ABG PCO2 19.6 mmHg (35.0-45.0); ABG PH 7.402 (7.350-7.450); ABG PO2 61.9 mmHg (75.0-100.0); AaDO2 200.8 mmHg; COHb 0.2 % (0.5-1.5); MetHb 0.3 % (0.0-1.5); O2Hb 90.2 % (94.0-97.0); SITE, ABG Right Brachial; VENT MODE, BG nasal cannula
[2020-01-05] MEDS ORDERED: IV 1/2NS 1000 ML 1,000 ML IV PRN (09:00)
[2020-01-05] MEDS: INSULIN GLARGINE, 100 UNIT/ML CARTRIDGE SQ SCH (09:23)
[2020-01-05] MEDS ORDERED: PIPERACILLIN /TAZOBACTAM 2.25 G in IV D5W 50 ML IV SCH (09:30)
--- NOTE | 2020-01-05 09:30 | NUR ---
S/E by Dr. Kay. made aware patient unable to tolerate foods and meds sometimes, she coughs and having hard time to swallow, per MD, hold if needed and start on IVF.
[2020-01-05] MEDS: Sodium Bicarbonate 150 MEQ in IV D5W 1,000 ML IV PRN ×2 (10:10→19:30)
[2020-01-05] MEDS: HYDROCORTISONE SOD SUCCINATE 100 MG/2 ML VIAL IV SCH ×2 (10:42→17:12)
--- NOTE | 2020-01-05 11:09 | NUR ---
RN NOTE 0715: Received patient, awake, noted with confusion. With RIJ TLC intact. On 3 pressors, please see IV spreadsheet. Will titrate as ordered. On HFNC 40L 80%, sat 96%. ST 120's. bilateral feet dressing CDI. On iso prec for MRSA nares, maintained and observed. 0800: RT titrated off HFNC and placed on 4LPM NC. 0900: ABG resulted and Dr. Hdz aware, with order to place back on HFNC, RT placed on 30L 50%. 0915: S/E by Dr. Kay, new orders acknowledged. 0930: Spoke with Binh, brother via phone and updated re: patient's condition. 1040: Started on D5W with 3 amps Bicarb drip. 1100: Noted patient with removing HFNC multiple times, informed Dr. Kay, but unable to place order in, telephone order placed.
[2020-01-05] MEDS: INSULIN REGULAR, HUMAN 100 UNIT/ML 3 ML VIAL SQ PRN ×2 (12:06→17:32)
--- NOTE | 2020-01-05 16:30 | NUR ---
RN NOTE Monitored for S/S CDiff, noted with BM x1 only and formed, unable to collect to send to lab.
[2020-01-05] MEDS: PIPERACILLIN /TAZOBACTAM 2.25 G in IV D5W 50 ML IV SCH (17:12)
[2020-01-05] MEDS ORDERED: GLUCERNA 1.2 1,000 ML BOTTLE NG PRN (17:30)
--- NOTE | 2020-01-05 18:35 | NUR ---
RN NOTE HD nurse Katey reported she is unable to use the VICTORINO AV fistula, she reported to Dr. Dial if needed cath, will not do HD today.
--- NOTE | 2020-01-05 19:30 | NUR ---
SERVICE LINE BUS CLEANER PT HR 120s ATTEMPTING TO WEAN OFF LEVOPHED; DECREASED TO 0.2 MCG/KG/MIN. CONTNUE TO MONITOR.
[2020-01-05] MEDS: MUPIROCIN OINT 2% 22 GM TUBE NS SCH (21:27)
[2020-01-05] MEDS: *INSULIN REGULAR(HUMULIN R)HUM 100 UNIT/ML VIAL SQ PRN (21:29)
--- NOTE | 2020-01-05 21:30 | NUR ---
BUS OPERATOR SBP CONSISTENTLY IN THE 60s LEVOPHED TITRATED UP TP 0.2 MCG/KG/MIN. CONTINUE TO TITRATE PER PROTOCOL.
[2020-01-05] MEDS: PREGABALIN 25 MG CAPSULE PO SCH (21:35)
[2020-01-06] VITALS (97 sets, daily range): BP systolic 73–114; BP diastolic 36–77
[2020-01-06] MEDS: PIPERACILLIN /TAZOBACTAM 2.25 G in IV D5W 50 ML IV SCH ×3 (01:30→17:12)
[2020-01-06] MEDS: HYDROCORTISONE SOD SUCCINATE 100 MG/2 ML VIAL IV SCH ×3 (01:30→17:09)
[2020-01-06 04:31] LABS: BASOPHILS % (AUTO) 0.1 % (0.0-2.0); HEMATOCRIT 27 % (33-45); LYMPHOCYTES # (AUTO) 0.7 /CMM (0.8-4.8); MEAN CORPUSCULAR HGB CONC 30 g/dl (31.0-36.0); MEAN CORPUSCULAR VOLUME 94 fL (82-100); MONOCYTES # (AUTO) 0.9 /CMM (0.1-1.30); MONOCYTES % (AUTO) 2.8 % (2.0-12.0); NEUTROPHILS # (AUTO) 30.7 /CMM (1.8-8.9); NEUTROPHILS % (AUTO) 95.1 % (43.0-81.0); PLATELET COUNT (AUTO) 145 /CMM (150-450); RED BLOOD CELL COUNT(AUTO) 2.83 MIL/uL (4.0-5.2)
[2020-01-06 04:35] LABS: CARBON DIOXIDE 22 mmol/L (21-32); CHLORIDE 107 mmol/L (98-107); CREATININE 4.5 mg/dL (0.6-1.3); GLUCOSE 250 mg/dL (74-106); POTASSIUM 3.6 mmol/L (3.5-5.1); SODIUM SERUM 146 mmol/L (136-145); UREA NITROGEN, BLOOD 45 mg/dL (7-18); WHITE BLOOD COUNT (AUTO) 32.3 K/uL (4.3-11.0)
[2020-01-06] MEDS: PHENYLEPHRINE 100 MG in IV NS 0.9% 240 ML IV PRN ×3 (04:55→20:35)
[2020-01-06 05:00] LABS: LYMPHOCYTES % (MANUAL) 6 % (16-48); MONOCYTES % (MANUAL) 1 % (0-11.0); NEUTROPHILS % (MANUAL) 93 (42-76)
--- NOTE | 2020-01-06 07:10 | NUR ---
RN NOTES RECEIVED PT ON BED, ALERT/ CONFUSED, FOLLOWS SIMPLE COMMAND, ON HIGH FLOW O2 , AT 30L AND 50%, O2 SAT WNL, HR IN 110'S, ST , ON LEVO AT .15 MCG/KG/MIN, AARON AT 3 MCG/KG/MIN FOR BP SUPPORT , D5W WITH BICARB AT 75CC/HR RUNNING VIA R IJ PICC LINE , SITE CLEAN,DRY AND INTACT, SR UP x3, CALL LIGHT WITHIN EASY REACH, BED LOCKED AND IN LOWEST POSITION, CONTINUE TO MONITOR .
[2020-01-06] MEDS: PANTOPRAZOLE 40 MG TABLET.DR PO SCH (07:30)
[2020-01-06] MEDS: NOREPINEPHRINE 32 MG in IV NS 0.9% 218 ML IV PRN ×2 (07:54→20:35)
[2020-01-06] MEDS: Sodium Bicarbonate 150 MEQ in IV D5W 1,000 ML IV PRN (07:58)
[2020-01-06] MEDS: CALCIUM ACETATE 667 MG TABLET PO SCH ×2 (08:00→17:12)
[2020-01-06] MEDS: DICYCLOMINE HCL 10 MG CAPSULE PO SCH ×2 (08:19→16:41)
[2020-01-06] MEDS: ASCORBIC ACID 500 MG TABLET PO SCH ×2 (08:20→16:41)
[2020-01-06] MEDS: VITAMIN B COMP W-C 1 TAB TABLET PO SCH (08:20)
[2020-01-06] MEDS: CHOLECALCIFEROL 1,000 UNIT TABLET (VIT D3) PO SCH (08:20)
[2020-01-06] MEDS: ATORVASTATIN 40 MG TABLET PO SCH (08:20)
[2020-01-06 08:25] LABS: ABG BASE EXCESS -0.8 mmol/L; ABG OXYGEN SATURATION 95.6 % (92.0-98.5); ABG PO2 77.3 mmHg (75.0-100.0); COHb 0.3 % (0.5-1.5); O2Hb 95.3 % (94.0-97.0); SITE, ABG Right Radial; VENT MODE, BG HFNC 30L 50%
[2020-01-06] MEDS: INSULIN REGULAR, HUMAN 100 UNIT/ML 3 ML VIAL SQ PRN ×3 (08:42→17:11)
[2020-01-06] MEDS: BLOOD SUGAR DIAGNOSTIC 1 EACH STRIP VI SCH ×4 (08:43→22:12)
[2020-01-06] MEDS: Z GUARD REMEDY 2 OZ OINT TP SCH (08:45)
[2020-01-06] MEDS: MUPIROCIN OINT 2% 22 GM TUBE NS SCH ×2 (08:46→20:36)
[2020-01-06] MEDS: IV D5/ 0.9% NACL 1,000 ML IV PRN ×2 (09:12→22:45)
[2020-01-06] MEDS: INSULIN GLARGINE, 100 UNIT/ML CARTRIDGE SQ SCH (09:40)
--- NOTE | 2020-01-06 10:00 | NUR ---
RN NOTES NO HD CATH ACCESS AT THIS TIME , BLOOD TRANSFUSION WILL BE GIVEN WITH HD PER DR. WAYNE MILLER .
--- NOTE | 2020-01-06 14:00 | NUR ---
RN NOTES TELEPHONE CONSENT OBTAINED FROM PT BROTHER FOR HD CATH PLACEMENT .
[2020-01-06 14:08] LABS: BILIRUBIN,DIRECT 0.3 mg/dL (0.0-0.2)
[2020-01-06] MEDS ORDERED: AMIODARONE 150 MG in IV D5W 100 ML IV ONE (15:00)
--- NOTE | 2020-01-06 15:00 | NUR ---
RN NOTES LA =2.7, DR BLACK NOTIFED, NO NEW ORDER RECEIVED , CONTINUE TO MONITOR .
[2020-01-06] MEDS: AMIODARONE 450 MG in IV D5W 250 ML IV PRN ×2 (15:30→22:45)
--- NOTE | 2020-01-06 16:00 | NUR ---
RN NOTES LEFT FEMORAL HD CATH INSERTED BY FRANCHISE CONSULTANT . SITE CLEAN, DRY AND INTACT.
--- NOTE | 2020-01-06 18:00 | NUR ---
RN NOTES PT IS UNABLE TO RECEIVED HD DUE TO LEFT FEMORAL HD CATH MALFUNCTION, DR BONILLA NOTIFED
--- NOTE | 2020-01-06 18:00 | NUR ---
RN NOTES PT REMAINS ON HIGH FLOW O2 , ON LEVO AT .4 MCG/KG/MIN. AARON AT 3 MCG/KG/MIN AND AMIO GTT AT 1 MG /MIN.RUNNING VIA RIGHT IJ TLC, ON TELE HR IN 130'S , SR UP X3, CALL LIGHT WITHIN EASY REACH, BED LOCKED AND IN LOWEST POSITION, WILL ENDORSE TO VOCATIONAL REHABILITATION SUPERVISOR NURSE FOR CONTINUITY OF CARE.
--- NOTE | 2020-01-06 18:18 | NUR ---
RN NOTES LEFT FEMORAL HD CATH IS NOT WORKING PER HD NURSE , BLOOD RETURN TO BLOOD BANK AT THIS TIME .
[2020-01-06] MEDS: *INSULIN REGULAR(HUMULIN R)HUM 100 UNIT/ML VIAL SQ PRN (22:25)
[2020-01-07] VITALS (73 sets, daily range): BP systolic 79–127; BP diastolic 51–71
[2020-01-07] MEDS: PIPERACILLIN /TAZOBACTAM 2.25 G in IV D5W 50 ML IV SCH ×3 (01:30→17:08)
[2020-01-07] MEDS: HYDROCORTISONE SOD SUCCINATE 100 MG/2 ML VIAL IV SCH (01:30)
[2020-01-07] MEDS: PHENYLEPHRINE 100 MG in IV NS 0.9% 240 ML IV PRN ×2 (04:30→12:32)
[2020-01-07 04:47] LABS: BASOPHILS % (AUTO) 0.1 % (0.0-2.0); HEMATOCRIT 27 % (33-45); LYMPHOCYTES # (AUTO) 0.6 /CMM (0.8-4.8); LYMPHOCYTES % (AUTO) 1.9 % (20.0-44.0); MEAN CORPUSCULAR HGB CONC 30 g/dl (31.0-36.0); MEAN CORPUSCULAR VOLUME 95 fL (82-100); MONOCYTES # (AUTO) 0.8 /CMM (0.1-1.30); MONOCYTES % (AUTO) 2.4 % (2.0-12.0); NEUTROPHILS % (AUTO) 95.6 % (43.0-81.0); PLATELET COUNT (AUTO) 101 /CMM (150-450); RED BLOOD CELL COUNT(AUTO) 2.83 MIL/uL (4.0-5.2)
[2020-01-07 04:57] LABS: WHITE BLOOD COUNT (AUTO) 33.5 K/uL (4.3-11.0)
[2020-01-07 04:59] LABS: CALCIUM, SERUM 7.4 mg/dL (8.5-10.1); CARBON DIOXIDE 21 mmol/L (21-32); CHLORIDE 109 mmol/L (98-107); CREATININE 4.6 mg/dL (0.6-1.3); GLUCOSE 208 mg/dL (74-106); POTASSIUM 3.5 mmol/L (3.5-5.1); SODIUM SERUM 146 mmol/L (136-145); UREA NITROGEN, BLOOD 52 mg/dL (7-18)
[2020-01-07 05:51] LABS: BAND % (MANUAL) 4 % (0.0-5.0); LYMPHOCYTES % (MANUAL) 1 % (16-48); MONOCYTES % (MANUAL) 4 % (0-11.0); MYELOCYTES % 1 % (0-0); NEUTROPHILS % (MANUAL) 89 (42-76); REACTIVE LYMPHOCYTES 1 % (0-0)
[2020-01-07] MEDS ORDERED: DIGOXIN INJ 0.5 MG/2 ML AMPUL IV ONE (06:00)
--- NOTE | 2020-01-07 06:00 | NUR ---
ADVANCED PRACTICE NURSE PSYCHOTHERAPIST NOTIFIED DR BLACK OF LACTIC ACID 4.3 NO NEW ORDERS RCD. PT NOTED WITH ELEVATED HEART RATE 160s AFIB TO VTACH. NOTIFIED W/ORDERS RCD. CONTINUE TO MONITOR.
--- NOTE | 2020-01-07 06:04 | NUR ---
VP CLIENT SERVICES UNABLE TO TITRATE OFF LEVOPHED PT SBP CONTINUES TO DROP TO 70-80s. CONTINUE TO MONITOR.
--- NOTE | 2020-01-07 07:00 | NUR ---
RN NOTES RECEIVED PT ON BED, ALERT/ CONFUSED, TALKATIVE AND FOLLOWS SIMPLE COMMAND, ON HIGH FLOW O2 , AT 30L AND 50%, O2 SAT WNL, HR IN 150'S, A.FIB WITH RVR AND VT AT TIMES, DR STOCKTON NOTIFIED , PT ON LEVO AT .2MCG/KG/MIN, AMIO AT .5 MG/MIN , AARON AT 3 MCG/KG/MIN FOR BP SUPPORT , D5NS AT 80CC /HR RUNNING VIA R IJ PICC LINE , SITE CLEAN,DRY AND INTACT, SR UP x3, CALL LIGHT WITHIN EASY REACH, BED LOCKED AND IN LOWEST POSITION, CONTINUE TO MONITOR .
[2020-01-07] MEDS: PANTOPRAZOLE 40 MG TABLET.DR PO SCH (07:30)
[2020-01-07] MEDS: CALCIUM ACETATE 667 MG TABLET PO SCH ×2 (08:00→17:08)
[2020-01-07] MEDS: INSULIN REGULAR, HUMAN 100 UNIT/ML 3 ML VIAL SQ PRN (08:17)
[2020-01-07] MEDS: DICYCLOMINE HCL 10 MG CAPSULE PO SCH ×2 (08:18→16:47)
[2020-01-07] MEDS: VITAMIN B COMP W-C 1 TAB TABLET PO SCH (08:18)
[2020-01-07] MEDS: CHOLECALCIFEROL 1,000 UNIT TABLET (VIT D3) PO SCH (08:18)
[2020-01-07] MEDS: ASCORBIC ACID 500 MG TABLET PO SCH ×2 (08:18→16:47)
[2020-01-07] MEDS: BLOOD SUGAR DIAGNOSTIC 1 EACH STRIP VI SCH ×3 (08:18→17:06)
[2020-01-07] MEDS ORDERED: HEPARIN INFUSION/D5W 500 ML IV PRN (08:30)
[2020-01-07] MEDS: MUPIROCIN OINT 2% 22 GM TUBE NS SCH (09:00)
[2020-01-07] MEDS: INSULIN GLARGINE, 100 UNIT/ML CARTRIDGE SQ SCH (09:02)
[2020-01-07] MEDS: Z GUARD REMEDY 2 OZ OINT TP SCH (09:03)
--- NOTE | 2020-01-07 10:00 | NUR ---
RN NOTES DR STOCKTON NOTIFIED REGARDING TROPONIN 3.435.
[2020-01-07] MEDS: NOREPINEPHRINE 32 MG in IV NS 0.9% 218 ML IV PRN (10:30)
[2020-01-07] MEDS ORDERED: HEPARIN SODIUM, PORCINE 5000 UNITS/1 ML VIAL IV ONE ×2 (10:30)
[2020-01-07] MEDS: DIGOXIN INJ 0.5 MG/2 ML AMPUL IV SCH ×2 (12:05→17:08)
--- NOTE | 2020-01-07 13:00 | NUR ---
RN NOTES LEFT HIP WOUND NOTED WITH SMALL AMOUNT OF YELLOWISH THICK DRAINAGE , DR JONES AND DR BATEMAN NOTIFED .
--- NOTE | 2020-01-07 13:39 | NUR ---
RN NOTES AMIODARONE PO ORDERED , PT ON HIGH FLOW O2 , AND UNABLE TO SWALLOW , DR STOCKTON NOTIFIED, AMIO NOT GIVEN PER MD ORDER AT THIS TIME.
[2020-01-07] MEDS ORDERED: AMIODARONE HCL 200 MG TABLET PO SCH (14:00)
[2020-01-07] MEDS ORDERED: VANCOMYCIN 1 GM in IV D5W 250 ML IV ONE (15:00)
--- NOTE | 2020-01-07 16:00 | NUR ---
RN NOTES PT HAS NO HD ACCESS AT THIS TIME VANCO IV NOT GIVEN PER PHARMACY .
--- NOTE | 2020-01-07 17:16 | NUR ---
fio2 titrate from 50% to 40% due to spo2 99% Addendum: 01/07/20 at 1717 by THEODORE TSANG RT Amended: Links added.
--- NOTE | 2020-01-07 17:47 | NUR ---
RN NOTES NO HEART RATED NOTED ON MONITOR, NO RESPIRATION , NO PULSES NOTED,PT APPEARS PALE AND NO RESPONDING TO PAILFUL STIMULI ,CODE BLUE CALLED, CPR STARTED . PLEASE SEE CODE BLUE RECORDING .
[2020-01-07] MEDS ORDERED: SODIUM BICARBONATE SYR 50 MEQ/50 ML DISP.SYRIN IV ONE (17:49)
[2020-01-07] MEDS ORDERED: EPINEPHRINE (1:10,000) SYRINGE 1 MG/10 ML DISP.SYRIN IVP ONE (17:49)
--- NOTE | 2020-01-07 17:59 | NUR ---
RN NOTES PT PRONOUNCED BY DR RUGGIERO , NO AUDIBLE HEART TONES UPON AUSCULTATION, NO RESPIRATION ,NO BP NOTED .DR BATEMAN AND , MARCUS BOBO (PT BROTHER) NOTIFED .
== END 2020-01-07 17:50 | disposition expired | DRG 853 ==
LOC: ER 17:08 → ICU 20:58
PROVIDERS: ADMIT Internal Medicine; ATTEND Internal Medicine
PROC: 02H633Z Insertion of Infusion Device into Right Atrium, Percutaneous Approach (ICD-10-PCS; 2020-01-03)
PROC: B548ZZA Ultrasonography of Superior Vena Cava, Guidance (ICD-10-PCS; 2020-01-03)
PROC: 0JBR0ZZ Excision of Left Foot Subcutaneous Tissue and Fascia, Open Approach (ICD-10-PCS; principal; 2020-01-04)
PROC: 5A1D70Z Performance of Urinary Filtration, Intermittent, Less than 6 Hours Per Day (ICD-10-PCS; 2020-01-04)
PROC: 02HV33Z Insertion of Infusion Device into Superior Vena Cava, Percutaneous Approach (ICD-10-PCS; 2020-01-06)
PROC: B548ZZA Ultrasonography of Superior Vena Cava, Guidance (ICD-10-PCS; 2020-01-06)
PROC: 5A12012 Performance of Cardiac Output, Single, Manual (ICD-10-PCS; 2020-01-07)
PROC: 0BH18EZ Insertion of Endotracheal Airway into Trachea, Via Natural or Artificial Opening Endoscopic (ICD-10-PCS; 2020-01-07)
DX: A41.9 Sepsis, unspecified organism (principal); N18.6 End stage renal disease; R65.21 Severe sepsis with septic shock; G92 Toxic encephalopathy; I21.4 Non-ST elevation (NSTEMI) myocardial infarction; J96.91 Respiratory failure, unspecified with hypoxia; T82.858A Stenosis of other vascular prosthetic devices, implants and grafts, initial encounter; N39.0 Urinary tract infection, site not specified; I12.0 Hypertensive chronic kidney disease with stage 5 chronic kidney disease or end stage renal disease; L97.428 Non-pressure chronic ulcer of left heel and midfoot with other specified severity; L97.829 Non-pressure chronic ulcer of other part of left lower leg with unspecified severity; L97.429 Non-pressure chronic ulcer of left heel and midfoot with unspecified severity; L97.419 Non-pressure chronic ulcer of right heel and midfoot with unspecified severity; E11.52 Type 2 diabetes mellitus with diabetic peripheral angiopathy with gangrene; I96 Gangrene, not elsewhere classified; I42.9 Cardiomyopathy, unspecified; E46 Unspecified protein-calorie malnutrition; I47.2 Ventricular tachycardia; D64.9 Anemia, unspecified; Z99.2 Dependence on renal dialysis; E78.5 Hyperlipidemia, unspecified; I70.244 Atherosclerosis of native arteries of left leg with ulceration of heel and midfoot; E87.6 Hypokalemia; H54.62 Unqualified visual loss, left eye, normal vision right eye; I48.91 Unspecified atrial fibrillation; M20.42 Other hammer toe(s) (acquired), left foot; M20.41 Other hammer toe(s) (acquired), right foot; Z79.4 Long term (current) use of insulin; B96.1 Klebsiella pneumoniae [K. pneumoniae] as the cause of diseases classified elsewhere; E11.22 Type 2 diabetes mellitus with diabetic chronic kidney disease; D63.1 Anemia in chronic kidney disease; E88.09 Other disorders of plasma-protein metabolism, not elsewhere classified; N25.0 Renal osteodystrophy; E11.51 Type 2 diabetes mellitus with diabetic peripheral angiopathy without gangrene; L97.529 Non-pressure chronic ulcer of other part of left foot with unspecified severity; I70.248 Atherosclerosis of native arteries of left leg with ulceration of other part of lower leg; I70.245 Atherosclerosis of native arteries of left leg with ulceration of other part of foot; I70.234 Atherosclerosis of native arteries of right leg with ulceration of heel and midfoot; R31.9 Hematuria, unspecified; L89.156 Pressure-induced deep tissue damage of sacral region; L89.326 Pressure-induced deep tissue damage of left buttock; L89.316 Pressure-induced deep tissue damage of right buttock; L89.116 Pressure-induced deep tissue damage of right upper back; L89.896 Pressure-induced deep tissue damage of other site; B96.4 Proteus (mirabilis) (morganii) as the cause of diseases classified elsewhere; Y83.8 Other surgical procedures as the cause of abnormal reaction of the patient, or of later complication, without mention of misadventure at the time of the procedure; Y92.89 Other specified places as the place of occurrence of the external cause; E11.621 Type 2 diabetes mellitus with foot ulcer; Y83.2 Surgical operation with anastomosis, bypass or graft as the cause of abnormal reaction of the patient, or of later complication, without mention of misadventure at the time of the procedure
CPT/HCPCS: 36415; 36600; 71045-TC; 73620-TC; 74018; 80048-TC; 80053-TC; 80076-TC; 80202-TC; 81001; 82248-TC; 82533; 82550-TC; 82803-TC; 82962-TC; 83605-TC; 83735-TC; 83970; 84100-TC; 84484-TC; 85025-TC; 85730-TC; 86706; 86850-TC; 87040-TC; 87070-TC; 87081-TC; 87086-TC; 87186-TC; 87340; 90935-TC; 92526; 92611-TC; 93307-TC; 94799-TC; A6253; A6403; C1750; C1751; C9803; G0378; J0171; J0282; J1160; J1644; J1720; J1815; J2060; J2185; J2370; J2543; J3370; J3480; J3490; J7030; J7040; J7042; J7050; J7060; J7070; U0003